=== PATIENT | female | born 1970 | race Caucasian/White ===

== ENCOUNTER 2022-09-30 06:57 | Emergency (ER) | payer OTHER, SELFPAY ==
--- NOTE | ~2022-09-30 | XR_ITS ---
EXAMINATION: XR CERVICAL SPINE CLINICAL INFORMATION: Neck pain. COMPARISON: None TECHNIQUE: 4 views of the cervical spine were obtained. FINDINGS: There is straightening of the normal cervical lordosis with normal spinal alignment. The vertebral bodies are intact. Moderate degenerative disc disease is seen at C5-C6 and C6-C7. There is no acute fracture. The odontoid process is intact. The soft tissues are unremarkable. XR/XR cervical spine 3V IMPRESSION: 1. Straightening of the normal cervical lordosis may be secondary to positioning and/or muscle spasm. 2. C5-C6 and C6-C7 moderate degenerative disc disease.
[2022-09-30 07:02] VITALS: BP 126/80; PULSE 122; RESP 19; TEMP 36.6; O2SAT 98; BMI 27.4
[2022-09-30] MEDS: Ketorolac Tromethamine 15 MG/ML VIAL IVPUSH (08:02)
[2022-09-30] MEDS: Morphine Sulfate 4 MG/ML CARTRIDGE IVPUSH (08:02)
[2022-09-30] MEDS: Cyclobenzaprine HCl 10 MG TABLET PO (08:02)
[2022-09-30] MEDS: dexAMETHasone sod phosphate 10 MG/ML VIAL IVPUSH (08:02)
--- NOTE | 2022-09-30 08:10 | PC.NURSE ---
52 y/o F pw 10/10 pain to neck and L arm. pt tearful in stretcher, given IV pain meds with immediate relief 0/10. pt now resting comfortably in bed. VSS
[2022-09-30 08:12] VITALS: BP 145/86; PULSE 86; RESP 18; TEMP 36.6; O2SAT 98
--- NOTE | 2022-09-30 08:52 | ED_ITS ---
HPI - Back Pain/Injury General Chief Complaint: Back Pain/Injury Stated Complaint: pinched nerve? Time Seen by Provider: 09/30/22 07:52 Source: patient Mode of arrival: ambulatory Limitations: no limitations History of Present Illness HPI Narrative: 52-year-old female presents with neck pain. The pain is rated severe. The pain has been going on for 3 days. Is nontraumatic. The pain radiates to her left arm. Today she developed some tingling to her fingers but otherwise no weakness. Symptoms at times can be worse with movement. The symptoms can be better with putting arm overhead. She has never had this pain before. No additional complaints of musculoskeletal pain. Patient has tried Tylenol, ibuprofen and muscle relaxers without relief. She was actually seen at urgent care recently. They prescribed her numbing patches which have not improved her symptoms. Related Data Previous Rx's Medication Instructions Recorded methylprednisolone 4 mg tablets in 4 mg PO DAILY #21 ea 09/30/22 a dose pack (Medrol (Brandan)) naproxen 500 mg tablet 500 mg PO BID #30 tabs 09/30/22 oxycodone 5 mg tablet 5 mg PO Q8H PRN pain #10 tabs 09/30/22 Allergies Allergy/AdvReac Type Severity Reaction Status Date / Time No Known Allergies Allergy Verified 09/30/22 07:56 Review of Systems Review of Systems: CONSTITUTIONAL: Denies weight loss, fever and chills. HEENT: Denies changes in vision and hearing. RESPIRATORY: Denies SOB and cough. CV: Denies palpitations no CP. GI: Denies abdominal pain, nausea, vomiting and diarrhea. : Denies dysuria and urinary frequency. MSK: + myalgia - joint pain. SKIN: Denies rash and pruritus. NEUROLOGICAL: Denies headache and syncope. PSYCHIATRIC: Denies recent changes in mood. Denies anxiety and depression. All other ROS are negative unless in HPI PMFSH Social History Social History Smoked in Last 30 Days: Yes Use of substances other than those prescribed or required for medical reasons: No Advance Directives: No Physical Exam Vital Signs: Vital Signs: Last Vital Signs Temp 98 F 09/30/22 08:12 Pulse 86 09/30/22 08:12 Resp 18 09/30/22 08:12 BP 145/86 H 09/30/22 08:12 Pulse Ox 98 09/30/22 08:12 O2 Del Method 09/30/22 07:02 BMI result Body Mass Index 27.4 GEN: Well developed, no acute distress, alert, oriented HEENT: Normocephalic, atraumatic, normal external ears, nose appears normal, no oropharyngeal edema or exudates Eyes: Normal to appearance Neck: Supple, no lymphadenopathy, left paraspinous tenderness, trapezius tenderness, no midline tenderness or step-off Respiratory: Talks in complete sentences, no respiratory distress, clear to auscultation bilaterally Cardiovascular: Regular rate and rhythm, no murmurs rubs or gallops Abdomen: Soft, nontender, nondistended, no guarding, no rebound Back: No CVA tenderness Extremities: No clubbing cyanosis or edema Neurologic: No focal neurologic deficits, cranial nerves 2-12 intact, strength is 5/5 bilaterally, gait normal Skin: No rash Course Course Course Narrative: 52-year-old female with no major medical problems presents with severe left- sided neck pain radiating to left arm. Is nontraumatic. X-ray of the cervical spine identified straightening of the normal lordotic curve but in no other acute abnormalities. Patient will have IV access, she will be given intravenous analgesics as well as some muscle relaxers. She will be re-evaluated. Suspect cervical radiculopathy. Doubt any traumatic in or compression fracture Reevaluation(s) Reevaluation #1: Patient is currently feeling much better. We talked about pain management. I have recommended follow-up with [facility] complementary medicine including chiropractics, acupuncture, etc.. She could also consider massage therapy. She does not currently have a primary care provider. She is aware from control pain she may return to the emergency department. Time: 09:24 Medications Administered Discontinued Medications Generic Name Dose Route Start Last Admin Trade Name Freq PRN Reason Stop Dose Admin Cyclobenzaprine HCl 10 mg 09/30/22 07:56 09/30/22 08:02 Cyclobenzaprine Hcl 10 Mg Tablet PO 09/30/22 07:57 10 mg ONCE ONE Administration Dexamethasone Sodium Phosphate 10 mg 09/30/22 07:56 09/30/22 08:02 Dexamethasone Sod Phosphate 10 Mg/Ml Vial IVPUSH 09/30/22 07:57 10 mg ONCE ONE Administration Ketorolac Tromethamine 15 mg 09/30/22 07:56 09/30/22 08:02 Ketorolac Tromethamine 15 Mg/Ml Vial IVPUSH 09/30/22 07:57 15 mg ONCE ONE Administration Morphine Sulfate 4 mg 09/30/22 07:56 09/30/22 08:02 Morphine Sulfate 4 Mg/Ml Cartridge IVPUSH 09/30/22 07:57 4 mg ONCE ONE Administration Protocol Medical Decision Making Medical Decision Making MDM Narrative: 52-year-old female presenting with cervical radiculopathy, nontraumatic examination is overall benign. She is nonfocal neurologically. Neck strain will be obtained. There is no indication for laboratory analysis. She denies any intravenous drug abuse, fevers to suggest epidural abscess. She has no focal deficits on exam. Will provide patient with analgesics to re-evaluate. Differential Diagnosis Differential Diagnoses: The differential diagnosis associated with the presentation includes (Cervical radiculopathy, degenerative disc disease, osteophyte formation,) Cervical radiculopathy Admission/Observation Consideration of admission/observation: Escalation of care including admission/observation considered (Will evaluate based on pain control) Independent Interpretation I performed an independent interpretation of an: Plain X-Ray (Cervical spine: Straightening of the cervical lordosis otherwise no acute subluxation or fracture) Radiology Impression Discussion of test interpretation with radiology: I have reviewed the radiologist's reading. (IMPRESSION: 1. Straightening of the normal cervical lordosis may be secondary to positioning and/or muscle spasm. 2. C5-C6 and C6- C7 moderate degenerative disc disease. Dictated By:Audie Hunt MDSigned By:<Electronically signed by Audie Hunt MD in [place]>09/30/22 0580) Independent Historian Clinical information obtained from an independent historian. History obtained from or confirmed by: Spouse Tests considered The following testing was considered but not selected: MRI cervical spine Prescription Management I considered prescription management with: Pain Medication Discharge Plan Discharge Clinical Impression: Cervical radiculopathy Patient Disposition: Home, Self-Care Instructions: Cervical Radiculopathy (ED) Additional Instructions: Pain management instructions: 1). Ibuprofen 2) start naproxen 500 mg twice a day for at least 7 days. Take this with food. 3) Tylenol 1000 mg every 6 hours as needed for pain and discomfort 4) cyclobenzaprine 10 mg every 8 hours as needed for discomfort and muscle s pasm. This may cause drowsiness 5) oxycodone 5 mg every 6-8 hours as needed for pain, severe. May cause constipation and drowsiness. Consider stool softener like docusate 100 mg twice daily while taking this medication 6) consider complementary medicine such as acupuncture, massage therapy, physical therapy, chiropractics. Prescriptions: New naproxen 500 mg tablet 500 mg PO BID Qty: 30 0RF methylprednisolone [Medrol (Brandan)] 4 mg tablets,dose pack 4 mg PO DAILY Qty: 21 0RF Rx Instructions: Take Medrol Dosepak as directed oxycodone 5 mg tablet 5 mg PO Q8H PRN (Reason: pain) Qty: 10 0RF Rx Instructions: Partial Fill upon patient request.
== END 2022-09-30 09:41 | disposition home or self-care (01) ==
PROVIDERS: Emergency Provider Emergency Medicine
DX: M54.12 Radiculopathy, cervical region (principal); M54.2 Cervicalgia; M79.602 Pain in left arm; Z79.899 Other long term (current) drug therapy
CPT/HCPCS: 72040; 96374; 96375; 99284; J1100; J1885; J2270

== ENCOUNTER 2023-01-04 06:19 | Outpatient (REF) | payer OTHER, SELFPAY ==
[2023-01-04 06:32] LABS: MANUAL DIFF FLAG NO
[2023-01-04 07:32] LABS: Basophils Absolute Auto 0.1 X10*3/uL (0.0-0.2); Basophils Percent Auto 1.4 % (0-2); Eosinophils Absolute Auto 0.4 X10*3/uL (0.0-0.4); Eosinophils Percent Auto 6.5 % (0-4); Hematocrit 44.3 % (37.0-47.0); Hemoglobin 14.9 g/dl (12.0-16.0); Imm Gran Abs Auto 0.01 X10*3/uL (0.00-0.03); Imm Gran Pct Auto 0.2 % (0.0-0.4); Lymphocytes Absolute Auto 1.5 X10*3/uL (1.2-4.9); Mean Corpuscular HGB Conc 33.6 g/dl (31.0-35.0); Mean Corpuscular Hemoglobin 32.7 pg (27.0-33.0); Mean Corpuscular Volume 97.1 fL (80.0-98.0); Mean Platelet Volume 9.7 fL (9.4-12.3); Monocytes Absolute Auto 0.4 X10*3/uL (0.1-1.2); Monocytes Percent Auto 7.7 % (2-11); Neutrophils Absolute Auto 3.3 x10*3/uL (2.0-8.3); Neutrophils Percent Auto 58.2 % (45-73); Platelet Count 262 X10*3/uL (160-400); Red Blood Count 4.56 X10*6/uL (4.20-5.50); Red Cell Distribution Width 13.9 % (11.0-16.0); White Blood Count 5.7 X10*3/uL (4.8-10.8)
[2023-01-04 08:12] LABS: Alanine Aminotransferase 106 U/L (0-31); Albumin Level 4.3 g/dL (3.5-5.0); Alkaline Phosphatase 98 U/L (39-117); Anion Gap 12 (12-20); Aspartate Amino Transferase 90 U/L (5-31); Bilirubin Total 0.9 mg/dL (0.0-1.0); Blood Urea Nitrogen 9 mg/dL (9-16); Calcium 9.8 mg/dL (8.4-10.2); Carbon Dioxide 28 mmol/L (22-29); Chloride 105 mmol/L (96-108); Cholesterol 257 mg/dL; Estimated Glomerular Filt Rate > 60; Glucose Random 89 mg/dL (60-115); HDL Cholesterol 41 mg/dL; LDL Cholesterol Calculated 185 mg/dl; Potassium 4.1 mmol/L (3.3-5.1); Sodium 141 mmol/L (135-145); Total Protein 6.9 g/dL (6.5-8.0); Triglycerides 158 mg/dL
[2023-01-04 08:29] LABS: Thyroid Stimulating Hormone 3.04 uIU/mL (0.32-4.0); Vitamin B12 973 pg/mL (200-900); Vitamin D 25-OH Total 14.2 ng/mL (>30)
== END 2023-01-04 06:20 | disposition home or self-care (01) ==
LOC: HO.LAB 06:19
PROVIDERS: PCP Internal Medicine; Visit Provider Internal Medicine
DX: Z00.00 Encounter for general adult medical examination without abnormal findings (principal); Z13.6 Encounter for screening for cardiovascular disorders
CPT/HCPCS: 36415; 80053; 80061; 82306; 82607; 82746; 84443; 85025